=== PATIENT | female | born 1960 | race Caucasian/White ===

== ENCOUNTER 2019-01-30 22:31 | Emergency (ER) | payer MEDICARE, OTHER ==
[2019-01-30 22:37] VITALS: BP 164/83
--- NOTE | 2019-01-30 23:18 | EDM.PDOCBH ---
ED HPI GENERAL MEDICAL PROBLEM - General Chief Complaint: Behavioral/Psych Stated Complaint: COMING BY AMBULANCE Time Seen by Provider: 01/30/19 22:50 Source of Information: Reports: Patient History Limitations: Reports: Other (Deaf) - History of Present Illness INITIAL COMMENTS - FREE TEXT/NARRATIVE: This 58 yo female patient was brought to the ED by [facility] due to her being upset and sad. The patient reports she does not like what the [facility] [place] has been telling her. The patient reports she wants to go to [employer] to learn how to fix her video phone. The patient's mother did come to the ED to assist with communication with the patient. The [facility] was called (Bert) advised the patient to do her deep breathing exercises and come to see them in the morning. Onset: Today Duration: Constant Location: Reports: Generalized Quality: Reports: Other Severity: Moderate Improves with: Reports: None Worsens with: Reports: None Associated Symptoms: Reports: No Other Symptoms - Related Data Allergies Allergy/AdvReac Type Severity Reaction Status Date / Time No Known Allergies Allergy Verified 01/30/19 22:33 Home Meds: Home Meds Acetaminophen [Pain Relief Extra Strength] 1 - 2 tab PO Q6H PRN 12/28/14 [ History] Calcium Carbonate/Vitamin D3 [Calcium 500 + Vit D 200 Caplet] 1 tab PO DAILY 12/13 [History] Multivitamin [Multi Vitamin Daily] 1 tab PO DAILY 12/28/14 [History] Mesalamine [Apriso] 4 cap PO DAILY 01/27/16 [History] QUEtiapine Fumarate [Quetiapine Fumarate] 4 tab PO BEDTIME 01/27/16 [History] Citalopram Hydrobromide [Celexa] 20 mg PO DAILY 10/11/18 [History] Past Medical History HEENT History: Reports: Hard of Hearing, Impaired Vision Other HEENT History: Deaf Cardiovascular History: Reports: None Respiratory History: Reports: None Gastrointestinal History: Reports: Other (See Below) Other Gastrointestinal History: ulcerative colitis Genitourinary History: Reports: None 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 DEVELOPMENT EDUCATOR History: Reports: None Musculoskeletal History: Reports: None Neurological History: Reports: None Psychiatric History: Reports: Anxiety, Depression, Mood Swings Endocrine/Metabolic History: Reports: None Hematologic History: Reports: None Immunologic History: Reports: None Oncologic (Cancer) History: Reports: None Dermatologic History: Reports: None - Infectious Disease History Infectious Disease History: Reports: Mumps - Past Surgical History Cardiovascular Surgical History: Reports: None Respiratory Surgical History: Reports: None Social & Family History - Family History Family Medical History: Noncontributory - Tobacco Use Smoking Status *Q: Never Smoker - Recreational Drug Use Recreational Drug Use: No ED ROS GENERAL - Review of Systems Review Of Systems: ROS reveals no pertinent complaints other than HPI. ED EXAM, BEHAVIORAL HEALTH - Physical Exam Exam: See Below Exam Limited By: Language Barrier General Appearance: Alert, WD/WN, Moderate Distress Eye Exam: Bilateral Eye: EOMI, Normal Inspection, PERRL Ears: Normal External Exam, Hearing Loss Nose: Normal Inspection, Normal Mucosa, No Blood Throat/Mouth: Normal Inspection, Normal Lips, Normal Teeth, Normal Gums, Normal Oropharynx, Normal Voice, No Airway Compromise Head: Atraumatic, Normocephalic Neck: Normal Inspection, Supple, Non-Tender, Full Range of Motion Respiratory/Chest: No Respiratory Distress, Lungs Clear, Normal Breath Sounds, No Accessory Muscle Use, Chest Non-Tender Cardiovascular: Normal Peripheral Pulses, Regular Rate, Rhythm, No Edema, No Gallop, No JVD, No Murmur, No Rub GI/Abdominal: Normal Bowel Sounds, Soft, Non-Tender, No Organomegaly, No Distention, No Abnormal Bruit, No Mass (Female) Exam: Deferred Rectal (Female) Exam: Deferred Extremities: Normal Inspection, Normal Range of Motion, Non-Tender, Normal Capillary Refill, No Pedal Edema Neurological: Alert, Normal Cognition, Normal Gait, Normal Reflexes, No Motor/ Sensory Deficits, Oriented x 3 Psychiatric: Depressed Mood, Agitated Skin Exam: Warm, Dry, Intact, Normal color, No rash COURSE, BEHAVIORAL HEALTH COMP - Course Vital Signs: Last Vital Signs Temp 37.3 C 01/30/19 22:34 Pulse 102 H 01/30/19 22:34 Resp 18 01/30/19 22:34 BP 164/83 H 01/30/19 22:34 Pulse Ox 98 01/30/19 22:34 Departure - Departure Time of Disposition: 23:21 Disposition: Home, Self-Care 01 Condition: Fair Clinical Impression: Depression Qualifiers: Depression Type: reactive depression Qualified Code(s): F32.9 - Major depressive disorder, single episode, unspecified - Discharge Information *PRESCRIPTION DRUG MONITORING PROGRAM REVIEWED*: Not Applicable *COPY OF PRESCRIPTION DRUG MONITORING REPORT IN PATIENT TELMA: Not Applicable Forms: ED Department Discharge Care Plan Goals: The patient and her mother were advised of the examination results and the conversation with the [facility]. The patient was encouraged to follow-up with the [facility] in the morning. If the patient has any additional symptoms or concerns, the patient should either return to the emergency department, visit the [facility] or visit her primary care facility.
== END 2019-01-30 23:29 | disposition home or self-care (01) ==
LOC: DL.ED 22:31
DX: F32.9 Major depressive disorder, single episode, unspecified (principal); Z79.899 Other long term (current) drug therapy
CPT/HCPCS: 99285

== ENCOUNTER 2019-03-01 10:47 | Emergency (ER) | payer MEDICARE, OTHER ==
[2019-03-01 10:58] VITALS: BP 139/89
[2019-03-01 11:55] LABS: ANION GAP 14.2; CHLORIDE,CL 103 mmol/L (101-111); SODIUM,NA 138 mmol/L (135-145)
[2019-03-01 12:04] LABS: ACETAMINOPHEN < 10 ug/mL
--- NOTE | 2019-03-01 14:00 | EDM.PDOC ---
Scribed by Sophia Marcelo 03/01/19 1240 for Gareth Reynolds MD ED HPI GENERAL MEDICAL PROBLEM - General Chief Complaint: General Stated Complaint: AMBUL, DEPRESSION Time Seen by Provider: 03/01/19 11:10 Source of Information: Reports: Patient, EMS, EMS Notes Reviewed, Old Records, RN, RN Notes Reviewed History Limitations: Reports: Physical Impairment (deaf) - History of Present Illness INITIAL COMMENTS - FREE TEXT/NARRATIVE: Deaf female arrives from home by ambulance with c/o feeling scared, frustrated, depressed, and suicidal. Pt has Hx of chronic mental illness. 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 She denies any current medical illness, injury, or pain. Onset: Unknown/Unsure Duration: Chronic, Getting Worse, Waxing/Waning Location: Reports: Generalized Severity: Severe Improves with: Reports: None Worsens with: Reports: None Associated Symptoms: Reports: No Other Symptoms - Related Data Allergies Allergy/AdvReac Type Severity Reaction Status Date / Time No Known Allergies Allergy Verified 01/30/19 22:33 Home Meds: Home Meds Acetaminophen [Pain Relief Extra Strength] 1 - 2 tab PO Q6H PRN 12/28/14 [ History] Calcium Carbonate/Vitamin D3 [Calcium 500 + Vit D 200 Caplet] 1 tab PO DAILY 12/13 [History] Multivitamin [Multi Vitamin Daily] 1 tab PO DAILY 12/28/14 [History] Mesalamine [Apriso] 4 cap PO DAILY 01/27/16 [History] QUEtiapine Fumarate [Quetiapine Fumarate] 4 tab PO BEDTIME 01/27/16 [History] Citalopram Hydrobromide [Celexa] 20 mg PO DAILY 10/11/18 [History] Past Medical History HEENT History: Reports: Hard of Hearing, Impaired Vision Other HEENT History: Deaf Cardiovascular History: Reports: None Respiratory History: Reports: None Gastrointestinal History: Reports: Other (See Below) Other Gastrointestinal History: ulcerative colitis Genitourinary History: Reports: None NURSE RESEARCH History: Reports: None Musculoskeletal History: Reports: None Neurological History: Reports: None Psychiatric History: Reports: Anxiety, Depression, Mood Swings Endocrine/Metabolic History: Reports: None Hematologic History: Reports: None Immunologic History: Reports: None Oncologic (Cancer) History: Reports: None Dermatologic History: Reports: None - Infectious Disease History Infectious Disease History: Reports: Mumps - Past Surgical History Cardiovascular Surgical History: Reports: None Respiratory Surgical History: Reports: None Social & Family History - Family History Family Medical History: Noncontributory - Living Situation & Occupation Living situation: Reports: Single Occupation: Disabled ED ROS GENERAL - Review of Systems Review Of Systems: ROS reveals no pertinent complaints other than HPI. ED EXAM, GENERAL - Physical Exam Exam: See Below Exam Limited By: No Limitations General Appearance: Alert, Anxious, Other (Tearful) Eye Exam: Bilateral Eye: Normal Inspection Ears: Other (Deaf) Nose: Normal Inspection Throat/Mouth: Normal Inspection, No Airway Compromise Head: Atraumatic, Normocephalic Neck: Normal Inspection Respiratory/Chest: No Respiratory Distress, Lungs Clear, Normal Breath Sounds, No Accessory Muscle Use, Chest Non-Tender Cardiovascular: Regular Rate, Rhythm GI/Abdominal: Normal Bowel Sounds, Soft, Non-Tender, No Distention Extremities: Normal Inspection Neurological: Alert, Normal Cognition, No Motor/Sensory Deficits Psychiatric: Anxious, Depressed Mood, Tearful, Other (Pt states that she has been having suicidal thoughts and is thinking of hurting herself.) Skin Exam: Warm, Dry, Intact, Normal Color, No Rash Course - Vital Signs Last Recorded V/S: Last Vital Signs Temp 37.2 C 03/01/19 10:53 Pulse 98 03/01/19 10:53 Resp 18 03/01/19 10:53 BP 139/89 03/01/19 10:53 Pulse Ox 100 03/01/19 10:53 - Orders/Labs/Meds Orders: Active Orders 24 hr Category Date Time Status Consult to Crisis Intervention Team [CONS] Routine Cons 03/01/19 11:15 Ordered DRUG SCREEN URINE BIORAD [URCHEM] Stat Lab 03/01/19 11:15 Ordered UA RFX FREDERICK AND CULT IF INDIC [URIN] Stat Lab 03/01/19 11:15 Ordered Suicide Precautions [OM.PC] Routine Oth 03/01/19 11:15 Ordered Labs: Laboratory Tests 03/01/19 03/01/19 03/01/19 Range/Units 11:28 11:28 11:28 WBC 4.2 L (5.0-10.0) 10^3/uL RBC 4.94 (4.2-5.4) 10^6/uL Hgb 14.6 (12.0-16.0) g/dL Hct 43.8 (37.0-47.0) % MCV 88.7 (80-100) fL MCH 29.6 (27.0-34.0) pg MCHC 33.3 (33.0-35.0) g/dL Plt Count 189 (150-450) 10^3/uL Neut % (Auto) 53.8 (42.2-75.2) % Lymph % (Auto) 34.7 (20.5-50.1) % Crowley % (Auto) 8.6 H (2-8) % Eos % (Auto) 2.4 (1.0-3.0) % Baso % (Auto) 0.5 (0.0-1.0) % Sodium 138 (135-145) mmol/L Potassium 3.2 L (3.6-5.0) mmol/L Chloride 103 (101-111) mmol/L Carbon Dioxide 24.0 (21.0-31.0) mmol/L Anion Gap 14.2 BUN 17 (7-18) mg/dL Creatinine 0.8 (0.6-1.3) mg/dL Est Cr Clr Drug Dosing 64.58 mL/min Estimated GFR (MDRD) > 60 BUN/Creatinine Ratio 21.25 Glucose 82 (74-105) mg/dL Calcium 9.0 (8.4-10.2) mg/dl Magnesium 2.0 (1.8-2.5) mg/dL Total Bilirubin 1.0 (0.2-1.0) mg/dL AST 29 (10-42) IU/L ALT 23 (10-60) IU/L Alkaline Phosphatase 72 (42-121) IU/L Total Protein 8.0 (6.7-8.2) g/dl Albumin 4.6 (3.2-5.5) g/dl Globulin 3.4 Albumin/Globulin Ratio 1.35 TSH, Ultra Sensitive 1.25 (0.45-5.33) uIu/mL Salicylates < 4 mg/dL Acetaminophen < 10 ug/mL Ethyl Alcohol < 5 mg/dL - Re-Assessments/Exams Free Text/Narrative Re-Assessment/Exam: 03/01/19 13:57 P crisis pooling operator has interviewed the pt, and is familiar with the pt. She has determined the pt may be discharged home from the ER. She finds the pt is not actively suicidal or at risk of self harm at this time. She has arranged for the pt to stay with the pt's mother natalie, and for f/u with her psychiatric provider next week. Departure - Departure Time of Disposition: 13:59 Disposition: Home, Self-Care 01 Condition: Good Clinical Impression: Depression Qualifiers: Depression Type: reactive depression Qualified Code(s): F32.9 - Major depressive disorder, single episode, unspecified - Discharge Information *PRESCRIPTION DRUG MONITORING PROGRAM REVIEWED*: No *COPY OF PRESCRIPTION DRUG MONITORING REPORT IN PATIENT TELMA: No Instructions: Living With Depression Forms: ED Department Discharge Additional Instructions: Follow up with your psychiatric provider this week. Return to the ER if you become suicidal, or have thoughts of harming yourself. - My Orders Last 24 Hours: My Active Orders 03/01/19 11:15 Consult to Crisis Intervention Team [CONS] Routine DRUG SCREEN URINE BIORAD [URCHEM] Stat UA RFX FR[place]ER[place] AND CULT IF INDIC [URIN] Stat Suicide Precautions [OM.PC] Routine - Assessment/Plan Last 24 Hours: My Active Orders 03/01/19 11:15 Consult to Crisis Intervention Team [CONS] Routine DRUG SCREEN URINE BIORAD [URCHEM] Stat UA RFX [place] AND CULT IF INDIC [URIN] Stat Suicide Precautions [OM.PC] Routine I have read and agree with the documentation that has been completed regarding this visit. By signing this record, I attest that the documentation was completed in my physical presence and is an accurate record of the encounter.
== END 2019-03-01 14:30 | disposition home or self-care (01) ==
LOC: DL.ED 10:47
DX: F32.9 Major depressive disorder, single episode, unspecified (principal); F41.9 Anxiety disorder, unspecified; Z79.899 Other long term (current) drug therapy
CPT/HCPCS: 36415; 80053; 83735; 84443; 85025; 99285; G0480

== ENCOUNTER 2019-08-16 15:12 | Emergency (ER) | payer MEDICARE, OTHER ==
[2019-08-16 18:05] VITALS: BP 125/81; PULSE 67
--- NOTE | 2019-08-16 18:39 | EDM.PDOCBH ---
Scribed by Sophia Marcelo 08/16/19 1601 for Libby Mcguire NP ED HPI GENERAL MEDICAL PROBLEM - General Chief Complaint: Behavioral/Psych Stated Complaint: BEING BROUGHT BY THE [facility] Time Seen by Provider: 08/16/19 15:15 Source of Information: Reports: Patient, RN, RN Notes Reviewed - History of Present Illness INITIAL COMMENTS - FREE TEXT/NARRATIVE: Patient brought to the ER by [facility] Social Service Behavioral Health loan servicing representative from Crisis Line suicidal. Patient called suicidal hotline as she felt unsafe as she wanted to commit suicide of jumping off a bridge. She has been inpatient many times for behavior social. she is able to write and read to voice her concerns and needs. No ROS concerns except for psych Counselor - James Hernandez; does not want to speak to him due to feeling emotionally unsafe with him Psychiatry: Jakub Centeno [facility]; she wants psychiatry contacted. Onset: Gradual Duration: Getting Worse Severity: Severe Improves with: Reports: None Worsens with: Reports: None Associated Symptoms: Reports: No Other Symptoms - Related Data Allergies Allergy/AdvReac Type Severity Reaction Status Date / Time No Known Allergies Allergy Verified 01/30/19 22:33 Home Meds: Home Meds Acetaminophen [Pain Relief Extra Strength] 1 - 2 tab PO Q6H PRN 12/28/14 [ History] Calcium Carbonate/Vitamin D3 [Calcium 500 + Vit D 200 Caplet] 1 tab PO DAILY 12/13 [History] Multivitamin [Multi Vitamin Daily] 1 tab PO DAILY 12/28/14 [History] Mesalamine [Apriso] 4 cap PO DAILY 01/27/16 [History] QUEtiapine Fumarate [Quetiapine Fumarate] 4 tab PO BEDTIME 01/27/16 [History] Citalopram Hydrobromide [Celexa] 20 mg PO DAILY 10/11/18 [History] Past Medical History HEENT History: Reports: Hard of Hearing, Impaired Vision Other HEENT History: Deaf Cardiovascular History: Reports: None Respiratory History: Reports: None Gastrointestinal History: Reports: Other (See Below) Other Gastrointestinal History: ulcerative colitis Genitourinary History: Reports: None PLANT RELIABILITY ENGINEER History: Reports: None Musculoskeletal History: Reports: None Neurological History: Reports: None Psychiatric History: Reports: Anxiety, Depression, Mood Swings Endocrine/Metabolic History: Reports: None Hematologic History: Reports: None Immunologic History: Reports: None Oncologic (Cancer) History: Reports: None Dermatologic History: Reports: None - Infectious Disease History Infectious Disease History: Reports: Mumps - Past Surgical History Head Surgeries/Procedures: Reports: None Cardiovascular Surgical History: Reports: None Respiratory Surgical History: Reports: None Social & Family History - Family History Family Medical History: Noncontributory - Caffeine Use Caffeine Use: Reports: Tea - Living Situation & Occupation Living situation: Reports: Single Occupation: Disabled ED ROS GENERAL - Review of Systems Review Of Systems: ROS reveals no pertinent complaints other than HPI. ED EXAM, BEHAVIORAL HEALTH - Physical Exam Exam: See Below Exam Limited By: No Limitations General Appearance: Alert, Anxious, Severe Distress Head: Atraumatic, Normocephalic Neck: Normal Inspection, Supple Respiratory/Chest: No Respiratory Distress, Lungs Clear, Normal Breath Sounds, No Accessory Muscle Use, Chest Non-Tender Cardiovascular: Normal Peripheral Pulses, Regular Rate, Rhythm, No Edema, No Gallop, No JVD, No Murmur, No Rub GI/Abdominal: Normal Bowel Sounds, Soft, Non-Tender, No Organomegaly, No Distention, No Abnormal Bruit, No Mass Back Exam: Normal Inspection, Full Range of Motion, NT Extremities: Normal Inspection, Normal Range of Motion, Non-Tender, Normal Capillary Refill, No Pedal Edema Neurological: Alert, Normal Gait, Oriented x 3, Other (Very fearful, weepy and sad.) Psychiatric: Alert, Suicidal Plan, Suicidal Thoughts, Other (weepy) Skin Exam: Warm, Dry, Intact, Normal color, No rash COURSE, BEHAVIORAL HEALTH COMP - Course Vital Signs: Last Vital Signs Temp 37.3 C 08/16/19 14:28 Pulse 100 08/16/19 14:28 Resp 18 08/16/19 14:28 BP Pulse Ox 98 08/16/19 14:28 Orders, Labs, Meds: Active Orders 24 hr Category Date Time Status DRUG SCREEN, URINE [URCHEM] Stat Lab 08/16/19 14:38 Ordered Laboratory Tests 08/16/19 Range/Units 14:49 Ethyl Alcohol < 5 mg/dL Medical Clearance: 08/16/19 16:00 Patient is medically cleared. [facility] from [facility] and Letty Layton evaluated patient. Not suicidal at this time; feels better that Loan said she does not have to see her counselor James Hernandez anymore; that they will find a different psych and contact her main psychologist. She agrees to go home with her mother under her mothers care; mother agrees and is here. Will be discharge to mother and see Loan on Sunday. 08/16/19 16:01 08/16/19 17:30 Departure - Departure Time of Disposition: 17:33 Disposition: Home, Self-Care 01 Condition: Good Clinical Impression: Mental health problem, Depressive disorder Suicidal behavior Qualifiers: Attempted self-injury: with attempted self-injury Qualified Code(s): T14.91XA - Suicide attempt, initial encounter - Discharge Information *PRESCRIPTION DRUG MONITORING PROGRAM REVIEWED*: Not Applicable *COPY OF PRESCRIPTION DRUG MONITORING REPORT IN PATIENT TELMA: Not Applicable Instructions: Suicidal Feelings: How to Help Yourself Forms: ED Department Discharge Additional Instructions: Home with mother. If you feel unsafe again; return to the ER. Loan will be in contact with your on Sunday for psych evaluation and to check on you. - My Orders Last 24 Hours: My Active Orders 08/16/19 14:38 DRUG SCREEN, URINE [URCHEM] Stat - Assessment/Plan Last 24 Hours: My Active Orders 08/16/19 14:38 DRUG SCREEN, URINE [URCHEM] Stat I have read and agree with the documentation that has been completed regarding this visit. By signing this record, I attest that the documentation was completed in my physical presence and is an accurate record of the encounter.
== END 2019-08-16 18:00 | disposition home or self-care (01) ==
LOC: DL.ED 15:12
DX: T14.91XA Suicide attempt, initial encounter (principal); F32.9 Major depressive disorder, single episode, unspecified; F48.9 Nonpsychotic mental disorder, unspecified; Z79.899 Other long term (current) drug therapy
CPT/HCPCS: 36415; 99284; G0480

== ENCOUNTER 2021-12-30 05:23 | Day surgery (SDC) | payer MEDICARE, OTHER ==
[2021-12-30] MEDS ORDERED: Midazolam 1 MG/ML 2 ML SDV IV ONE ×7 (05:24→06:45)
[2021-12-30] MEDS ORDERED: fentaNYL 100 MCG/2 ML SDV IV ONE ×3 (05:24→06:35)
[2021-12-30] MEDS ORDERED: Dextrose 5%-0.45% NaCl 1,000 ML IV SCH ×2 (06:00→08:00)
[2021-12-30] MEDS ORDERED: Midazolam 1 MG/ML 2 ML SDV ONE (06:07)
[2021-12-30] MEDS ORDERED: fentaNYL 100 MCG/2 ML SDV ONE (06:07)
[2021-12-30] MEDS ORDERED: Sodium Chloride 0.9% 10 ML Syringe FLUSH PRN (07:49)
[2021-12-30] MEDS ORDERED: Sodium Chloride 0.9% 10 ML Syringe FLUSH SCH (09:00)
[2021-12-30 09:03] VITALS: BP 120/65; PULSE 68
== END 2021-12-30 09:07 | disposition home or self-care (01) ==
LOC: DL.ENDO 05:23
PROVIDERS: ATTEND Internal Medicine Gastroenterology
DX: K51.90 Ulcerative colitis, unspecified, without complications (principal); E66.09 Other obesity due to excess calories; F32.A Depression, unspecified; Z01.812 Encounter for preprocedural laboratory examination; Z20.822 Contact with and (suspected) exposure to COVID-19; Z68.25 Body mass index [BMI] 25.0-25.9, adult
CPT/HCPCS: 88305; J2250; J3010; J7042; U0002

== ENCOUNTER 2022-11-21 19:46 | Emergency (ER) | payer MEDICARE, OTHER ==
[2022-11-21] MEDS ORDERED: Benzonatate 100 MG Cap PO ONE ×2 (19:47→21:04)
[2022-11-21 20:09] VITALS: BP 138/89; PULSE 98
[2022-11-21 20:40] LABS: CORONAVIRUS COVID-19 NAA NEGATIVE (NEGATIVE); RESPIRATORY SYNCYTIAL VIR NAA NEGATIVE (NEGATIVE)
[2022-11-21] MEDS ORDERED: Oseltamivir 75 MG Cap PO ONE (21:03)
[2022-11-21] MEDS ORDERED: Benzonatate 100 MG Cap ONE (21:20)
== END 2022-11-21 21:32 | disposition home or self-care (01) ==
LOC: DL.ED 19:46
DX: J10.1 Influenza due to other identified influenza virus with other respiratory manifestations (principal); Z20.822 Contact with and (suspected) exposure to COVID-19
CPT/HCPCS: 0241U; 99283; A9270-GY

== ENCOUNTER 2024-02-07 06:47 | Day surgery (SDC) | payer MEDICARE, OTHER ==
[2024-02-07] MEDS ORDERED: fentaNYL 100 MCG/2 ML SDV IV ONE (06:48)
[2024-02-07] MEDS ORDERED: Midazolam 1 MG/ML 2 ML SDV IV ONE (06:48)
[2024-02-07] MEDS ORDERED: Midazolam 1 MG/ML 2 ML SDV ONE (07:02)
[2024-02-07] MEDS ORDERED: fentaNYL 100 MCG/2 ML SDV ONE (07:02)
[2024-02-07] MEDS: Dextrose 5%-0.45% NaCl 1,000 ML IV SCH (07:20)
[2024-02-07] MEDS: fentaNYL 100 MCG/2 ML SDV IV ONE ×2 (08:19→08:20)
[2024-02-07] MEDS: Midazolam 1 MG/ML 2 ML SDV IV ONE ×5 (08:20→08:26)
[2024-02-07 11:16] VITALS: BP 126/78; PULSE 58
== END 2024-02-07 11:10 | disposition home or self-care (01) ==
LOC: DL.ENDO 06:47
PROVIDERS: ATTEND Internal Medicine Gastroenterology
DX: K51.90 Ulcerative colitis, unspecified, without complications (principal); F32.A Depression, unspecified
CPT/HCPCS: 88305; J2250; J3010; J7042

== ENCOUNTER 2024-10-15 11:50 | Emergency (ER) | payer MEDICARE ==
[2024-10-15 12:03] VITALS: BP 129/80; PULSE 91
[2024-10-15] MEDS ORDERED: Sodium Chloride 0.9% 10 ML Syringe FLUSH PRN (12:03)
[2024-10-15 12:20] LABS: BASOPHILS PERCENT AUTO 0.2 % (0.0-1.0); EOSINOPHILS PERCENT AUTO 0.6 % (1.0-3.0); HEMATOCRIT 40.6 % (37.0-47.0); HEMOGLOBIN 13.4 g/dL (12.0-16.0); LYMPHOCYTES PERCENT AUTO 15.8 % (20.5-50.1); MEAN CORPUSCULAR HEMOGLOBIN 29.6 pg (27.0-34.0); MEAN CORPUSCULAR VOLUME 89.8 fL (80-100); MONOCYTES PERCENT AUTO 5.8 % (2-8); NEUTROPHILS PERCENT AUTO 77.6 % (42.2-75.2); PLATELET COUNT,PLT 147 10^3/uL (150-450); RED BLOOD CELL COUNT 4.52 10^6/uL (4.2-5.4); WHITE BLOOD CELL COUNT,WBC 5.4 10^3/uL (5.0-10.0)
[2024-10-15] MEDS: Sodium Chloride 0.9% 1,000 ML IV ONE (12:24)
[2024-10-15 12:42] LABS: A/G RATIO 1.3; ALANINE AMINOTRANSFERASE,ALT 26 U/L (14-59); ALKALINE PHOSPHATASE 76 U/L (46-116); ANION GAP 13.9 mEq/L (7-13); ASPARTATE AMNIOTRANSFERASE,AST 18 U/L (15-37); BILIRUBIN TOTAL 0.4 mg/dL (0.2-1.0); BLOOD UREA NITROGEN,BUN 27 mg/dL (7-18); CALCIUM 8.9 mg/dL (8.5-10.1); CARBON DIOXIDE,CO2 28 mmol/L (21-32); CHLORIDE,CL 101 mmol/L (98-107); CREATINE KINASE,CK 86 U/L (16-191); CREATININE 0.93 mg/dL (0.55-1.02); GLUCOSE RANDOM 139 mg/dL (70-99); MAGNESIUM 2.2 mg/dL (1.8-2.4); POTASSIUM,K 3.9 mmol/L (3.5-5.1); PROTEIN TOTAL,TP 7.2 g/dL (6.4-8.2); SODIUM,NA 139 mmol/L (136-145)
[2024-10-15 12:43] LABS: ESTIMATED GFR 68 mL/min (>=60)
[2024-10-15 12:53] LABS: LACTIC ACID 1.6 mmol/L (0.4-2.0)
== END 2024-10-15 15:41 | disposition home or self-care (01) ==
LOC: DL.ED 11:50
DX: R55 Syncope and collapse (principal); R42 Dizziness and giddiness; Z79.899 Other long term (current) drug therapy
CPT/HCPCS: 36415; 70450; 70486; 71046; 72125; 80053; 82550; 83605; 83735; 84484; 85025; 93005; 99285; J7030

== ENCOUNTER 2025-03-14 15:26 | Emergency (ER) | payer MEDICARE ==
[2025-03-14] MEDS: diphenhydrAMINE 50 MG/ML SDV IM ONE (15:49)
[2025-03-14 16:33] VITALS: BP 153/93; PULSE 113
== END 2025-03-14 16:41 | disposition home or self-care (01) ==
LOC: DL.ED 15:26
DX: F41.9 Anxiety disorder, unspecified (principal); Z79.899 Other long term (current) drug therapy
CPT/HCPCS: 96372; 99284; J1200; 99283

== ENCOUNTER 2025-05-28 09:12 | Inpatient (IN) | payer MEDICARE ==
[2025-05-28] MEDS ORDERED: Ondansetron 4 MG Tab.DIS PO PRN (13:42)
[2025-05-28 14:10] LABS: BASOPHILS PERCENT AUTO 0.2 % (0.0-1.0); EOSINOPHILS PERCENT AUTO 1.3 % (1.0-3.0); LYMPHOCYTES PERCENT AUTO 15.3 % (20.5-50.1); MONOCYTES PERCENT AUTO 8.8 % (2-8); NEUTROPHILS PERCENT AUTO 74.4 % (42.2-75.2); PLATELET COUNT,PLT 245 10^3/uL (150-450); RED BLOOD CELL COUNT 4.29 10^6/uL (4.2-5.4); WHITE BLOOD CELL COUNT,WBC 8.9 10^3/uL (5.0-10.0)
[2025-05-28 14:28] LABS: INR 1.0 (0.9-1.2); PTT,PARTIAL THROMBOPLSTIN TIME 24.8 SEC (22.0-34.0)
[2025-05-28 14:31] LABS: A/G RATIO 1.1; ALANINE AMINOTRANSFERASE,ALT 22 U/L (14-59); ASPARTATE AMNIOTRANSFERASE,AST 18 U/L (15-37); BILIRUBIN TOTAL 0.3 mg/dL (0.2-1.0); BLOOD UREA NITROGEN,BUN 16 mg/dL (7-18); CARBON DIOXIDE,CO2 32 mmol/L (21-32); CHLORIDE,CL 100 mmol/L (98-107); CREATININE 0.96 mg/dL (0.55-1.02); GLUCOSE RANDOM 86 mg/dL (70-99); POTASSIUM,K 4.3 mmol/L (3.5-5.1); PROTEIN TOTAL,TP 7.7 g/dL (6.4-8.2); SODIUM,NA 138 mmol/L (136-145)
[2025-05-28 14:32] LABS: ESTIMATED GFR 65 mL/min (>=60)
[2025-05-29] MEDS: Calcium Carbonate/Vitamin D3 1250 MG-5 MCG Tab PO SCH (08:47)
[2025-05-29] MEDS: Lactulose Soln 10 GM/15 ML 30 ML UD Cup PO ONE ×2 (13:46→14:14)
[2025-05-29] MEDS: MESALAMINE PO SCH (13:48)
[2025-05-30] MEDS: MESALAMINE PO SCH (09:33)
[2025-06-12 07:48] VITALS: BP 112/51; PULSE 64
== END 2025-06-12 13:25 | disposition home health service (06) | DRG 948 ==
LOC: DL.MS 12:16
PROVIDERS: ADMIT Student in an Organized Health Care Education/Training Program; ATTEND Internal Medicine
DX: R53.1 Weakness (principal); G80.9 Cerebral palsy, unspecified; H91.90 Unspecified hearing loss, unspecified ear; H54.7 Unspecified visual loss; K59.09 Other constipation; M54.9 Dorsalgia, unspecified; G89.29 Other chronic pain; F41.9 Anxiety disorder, unspecified; F32.A Depression, unspecified; Z79.899 Other long term (current) drug therapy; Z98.890 Other specified postprocedural states
CPT/HCPCS: 36415; 80053; 83735; 85025; 85610; 85730; 97110-GO; 97110-GP; 97116-GP; 97161-GP; 97165-GO; 97530-GO; 97530-GP; 97535-GO; 99305; 99309; 99316; A9270-GY; J1650

== ENCOUNTER 2025-06-29 17:42 | Emergency (ER) | payer MEDICARE ==
[2025-06-29 20:00] VITALS: BP 125/87; PULSE 88
== END 2025-06-29 19:53 | disposition home or self-care (01) ==
LOC: DL.ED 17:42
DX: S00.31XA Abrasion of nose, initial encounter (principal); F41.9 Anxiety disorder, unspecified; Z63.79 Other stressful life events affecting family and household; Z79.899 Other long term (current) drug therapy; W19.XXXA Unspecified fall, initial encounter
CPT/HCPCS: 99283

== ENCOUNTER 2025-08-06 05:53 | Day surgery (SDC) | payer MEDICARE ==
[2025-08-06] MEDS ORDERED: Propofol 200 MG/20 ML SDV IV ONE (05:54)
[2025-08-06] MEDS ORDERED: Lactated Ringers 1,000 ML IV ONE (05:54)
[2025-08-06] MEDS: Lactated Ringers 1,000 ML IV SCH (06:33)
[2025-08-06 08:39] VITALS: BP 133/61; PULSE 65
[2025-08-06] MEDS ORDERED: Propofol 200 MG/20 ML SDV ONE (08:52)
== END 2025-08-06 08:56 | disposition home or self-care (01) ==
LOC: DL.ENDO 05:53
PROVIDERS: ATTEND Internal Medicine Gastroenterology
DX: K51.90 Ulcerative colitis, unspecified, without complications (principal)
CPT/HCPCS: 00811; 45380; 88305; J2704; J7120